=== PATIENT | female | born 1985 | race Caucasian/White ===

== ENCOUNTER 2022-05-19 20:44 | Inpatient (IN) | payer OTHER ==
[~2022-05-19] VITALS: Ht 165.1 cm; Wt 109.3 kg
[2022-05-19] MEDS ORDERED: NALBUPHINE HCL 10 MG/ML AMP IVP PRN (21:45)
[2022-05-19] MEDS ORDERED: OXYTOCIN/0.9 % SODIUM CHLORIDE 1,000 ML IV SCH (21:45)
[2022-05-19] MEDS ORDERED: LR 1,000 ML IV SCH (21:45)
[2022-05-19 21:55] LABS: BASOPHILS % (AUTO) 0.3 % (0.0-2.0); EOSINOPHILS # (AUTO) 0.1 K/uL (0.0-0.4); EOSINOPHILS % (AUTO) 1.3 % (0.0-4.0); HEMOGLOBIN 11.5 g/dL (12.0-16.0); LYMPHOCYTES # (AUTO) 1.9 K/uL (1.0-5.5); LYMPHOCYTES % (AUTO) 19.5 % (20.5-51.5); MEAN CORPUSCULAR HEMOGLOBIN 28 pg (27-31); MEAN CORPUSCULAR HGB CONC 33 % (32-36); MEAN CORPUSCULAR VOLUME 84 fL (79.0-98.0); MONOCYTES # (AUTO) 0.8 K/uL (0.0-1.0); MONOCYTES % (AUTO) 8.5 % (1.7-9.3); NEUTROPHILS # (AUTO) 6.7 K/uL (1.8-7.7); NEUTROPHILS % (AUTO) 70.4 % (40.0-70.0); PLATELET COUNT (AUTO) 247 K/uL (130-430); RED BLOOD CELL COUNT(AUTO) 4.17 MIL/uL (4.2-6.2); RED CELL DISTRIBUTION WIDTH 14.6 % (9.0-15.0); WHITE BLOOD COUNT (AUTO) 9.5 K/uL (4.8-10.8)
[2022-05-19] MEDS ORDERED: AMPICILLIN SODIUM 2 GM in NS 100 ML IV ONE (22:45)
[2022-05-19] MEDS ORDERED: AMPICILLIN SODIUM 2 GM VIAL ONE (22:51)
[2022-05-20] MEDS ORDERED: LIGHT MINERAL OIL 10 ML VIAL MC ONE
[2022-05-20] MEDS ORDERED: NALOXONE HCL 0.4 MG/ML AMP (NARCAN) ONE
[2022-05-20] MEDS ORDERED: LIDOCAINE PF 1% 30ML(POUR BTL) INJ ONE ×2 (00:01)
[2022-05-20] MEDS ORDERED: OXYTOCIN/0.9 % SODIUM CHLORIDE 1,000 ML IV ONE (02:45)
[2022-05-20] MEDS ORDERED: DERMOPLAST SPRAY TP PRN (02:45)
[2022-05-20] MEDS ORDERED: WITCH HAZEL LEAF 1 MED.PAD MED.PAD TP PRN (02:45)
[2022-05-20] MEDS: HYDROcodone/ACETAMIN 5-325 MG TAB (NORCO/ VICODIN) PO PRN ×3 (03:11→14:00)
[2022-05-20] MEDS ORDERED: AMPICILLIN SODIUM 1 GM in NS 50 ML IV SCH (04:00)
[2022-05-20] MEDS: IBUPROFEN 600 MG TABLET PO SCH ×3 (05:11→18:04)
[2022-05-20] MEDS: DOCUSATE SODIUM 100 MG CAPSULE PO SCH (08:56)
[2022-05-20] MEDS ORDERED: SENNOSIDES/DOCUSATE SODIUM 1 TAB TABLET(SENOKOT-S) PO SCH (21:00)
[2022-05-20] MEDS ORDERED: HYDROCORTISONE 0.5% CREAM 28.4 GM CREAM.GM. TP PRN (21:00)
[2022-05-20 21:13] VITALS: BP_SYST 125
[2022-05-21] MEDS: IBUPROFEN 600 MG TABLET PO SCH ×4 (00:29→18:02)
[2022-05-21] MEDS: HYDROcodone/ACETAMIN 5-325 MG TAB (NORCO/ VICODIN) PO PRN ×3 (00:36→18:03)
[2022-05-21 07:13] LABS: HEMATOCRIT 33.6 % (36-48)
[2022-05-21] MEDS: DOCUSATE SODIUM 100 MG CAPSULE PO SCH (09:38)
[2022-05-23 21:08] LABS: FTA-Ab (T PALLIDUM) Non Reactive (Non Reactive)
== END 2022-05-21 19:15 | disposition home or self-care (01) | DRG 560 ==
LOC: SPU 20:44
PROVIDERS: ADMIT Obstetrics & Gynecology; ATTEND Obstetrics & Gynecology
PROC: 10E0XZZ Delivery of Products of Conception, External Approach (ICD-10-PCS; principal; 2022-05-19)
PROC: 3E033VJ Introduction of Other Hormone into Peripheral Vein, Percutaneous Approach (ICD-10-PCS; 2022-05-19)
PROC: 3E0R3BZ Introduction of Anesthetic Agent into Spinal Canal, Percutaneous Approach (ICD-10-PCS; 2022-05-19)
PROC: 00HU33Z Insertion of Infusion Device into Spinal Canal, Percutaneous Approach (ICD-10-PCS; 2022-05-19)
DX: O80 Encounter for full-term uncomplicated delivery (principal); Z37.0 Single live birth; Z91.012 Allergy to eggs; Z79.899 Other long term (current) drug therapy; Z3A.39 39 weeks gestation of pregnancy
CPT/HCPCS: 36415; 81002; 85018; 85025; 86592; 86780; 86886; 86900; 86901; J0290; J2001; J2300; J2310; J2590